=== PATIENT | male | born 1980 | race Caucasian/White ===

== ENCOUNTER 2017-11-11 13:47 | Emergency (ER) | payer SELFPAY ==
[2017-11-11 13:48] VITALS: BP 126/75; PULSE 79; RESP 20; TEMP 37.2; O2SAT 99; BMI 50.7
--- NOTE | 2017-11-11 14:19 | ED_ITS ---
HPI - URI/Sore Throat General Chief Complaint: Upper Respiratory Symptoms Stated Complaint: POSSIBLE STREP THROAT Time Seen by Provider: 11/11/17 14:19 Source: patient and RN notes reviewed Mode of arrival: ambulatory Limitations: no limitations History of Present Illness HPI Narrative: Patient is a 37-year-old male who presents with sore throat for the last 4 days. He said he did open Jn night and woke up in his throat was a little more sore it is hurts more on the right than the left. No fever no body aches but some weakness. Runny nose started yesterday. He denies any cough MD Complaint: sore throat Related Data Home Medications Medication Instructions Recorded Confirmed No Known Home Medications 11/11/17 11/11/17 Allergies Allergy/AdvReac Type Severity Reaction Status Date / Time SEAFOOD Allergy Severe Difficulty Uncoded 11/11/17 13:56 Breathing Review of Systems Review of Systems All systems reviewed & are unremarkable except as noted in HPI and below Constitutional Denies chills, Denies fever(s), Denies lethargy and Denies weakness ENT Ears, Nose, Mouth, and Throat: Reports system reviewed and no additional complaints, except as docu Cardiovascular Denies dyspnea and Denies dyspnea on exertion Respiratory Denies cough, Denies dyspnea, Denies dyspnea on exertion and Denies wheezing Gastrointestinal Gastrointestinal: Denies abdominal pain, Denies change in bowel habits, Denies diarrhea, Denies nausea and Denies vomiting Integumentary/Breasts Denies pruritus, Denies erythema, Denies rash and Denies wounds Neurologic Denies weakness Allergic/Immunologic Denies wheezing [facility] Social History Smoking Status: Current every day smoker substance use type: marijuana Exam Initial Vital Signs Initial Vital Signs: Vital Signs Temperature 98.9 F 11/11/17 13:48 Pulse Rate 79 11/11/17 13:48 Respiratory Rate 20 11/11/17 13:48 Blood Pressure 126/75 H 11/11/17 13:48 Pulse Oximetry 99 11/11/17 13:48 Const General: cooperative and well developed Nutritional Appearance: well nourished Orientation: alert, awake, oriented x3 and not confused [facility] Throat: tonsils normal, uvula midline and posterior oropharynx abnormal (right side with mild swelling, no midline shift) 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 Neck Neck: normal visual inspection, trachea midline, No lymphadenopathy, No midline deformity and No JVD Lymphatic: No lymphedema Resp Effort & Inspection: normal respiratory effort, able to speak in complete sentences, no respiratory distress and no use of accessory muscles Auscultation: clear to auscultation bilaterally, no rales, no rhonchi and no wheezes Cardio Rate: regular rate Rhythm: regular rhythm Heart Sounds: no click, no gallops, no murmurs and no rubs Pulses: normal peripheral pulses Skin General: no rashes or lesions noted, No jaundice and No petechiae Neuro General: alert, awake and oriented x3 Course Orders Ordered: Discontinued Medications Dexamethasone (Decadron) 10 mg IV NOW ONE Stop: 11/11/17 14:27 Last Admin: 11/11/17 14:30 Dose: 10 mg Vital Signs - 8 hr 11/11/17 13:48 Temperature 98.9 F Pulse Rate 79 Respiratory Rate 20 Blood Pressure 126/75 H Pulse Oximetry 99 MDM - URI/Sore Throat Lab Data Attestation: I reviewed the patient's lab results. Discharge Plan Departure Patient Disposition: Home, Self-Care Clinical Impression: Pharyngitis Discharge Date/Time: 11/11/17 14:47 Interventions: ED Discharge Assessment Last Done: 11/11/17 14:46 Instructions: DI for Pharyngitis/Tonsillopharyngitis -- Adult Activity Restrictions/Additional Instructions: *You have been diagnosed with pharyngitis *What to do: Rest, hydrate, cough drops *Take medications as directed *Follow up with your primary care provider in 2-3 days *Return to ER if you should have inability to swallow, or any new, worsening or concerning symptoms Prescriptions: No Action No Known Home Medications RF: 0 Referrals: Devin Godinez MD [Primary Care Provider] - Stand Alone Forms: Work/School Restrictions
[2017-11-11] MEDS: DEXAMETHASONE 10 MG/ML VIAL IV (14:30)
== END 2017-11-11 14:47 | disposition home or self-care (01) ==
PROVIDERS: Emergency Provider Emergency Medicine; PCP Internal Medicine
DX: J02.9 Acute pharyngitis, unspecified (principal)
CPT/HCPCS: 87880; 96374; 99282; 99284; J1100

== ENCOUNTER 2024-10-12 06:44 | Emergency (ER) | payer SELFPAY ==
[2024-10-12] VITALS (14 sets, daily range): BP systolic 98–134; BP diastolic 61–82; PULSE 66–95; RESP 16–19; TEMP 36.7; O2SAT 95–99; BMI 22.1
[2024-10-12 07:16] LABS: Strep Grp A by PCR Rapid Negative (Negative)
--- NOTE | 2024-10-12 08:18 | ED.GENADULT ---
HPI - General Adult General Chief complaint: Upper Respiratory Symptoms Stated complaint: Cough/mucus, getting worse; pressure in ear Time Seen by Provider: 10/12/24 08:17 Source: patient, RN notes reviewed and old records reviewed Mode of arrival: Ambulatory Limitations: no limitations History of Present Illness HPI narrative: 44-year-old male no reported medical issues presents with complaint of fatigue, no fevers, nasal congestion, dry cough, little bit of upper chest discomfort for the past several days. Patient states his right ear is also started to get uncomfortable and have increasing pressure. He notes a lot of nasal congestion. He notes some green phlegm. States it has improved at this moment but has felt unwell for a couple days. Denies any shortness of breath. No nausea or vomiting. No other GI or urinary symptoms. No new swelling in extremities. Patient states no daily medications. Does note that he possibly had sick contacts was in group home for about 2 weeks recently. States no known drug allergies. Patient does smoke about a pack weekly, alcohol several times weekly, no IV or other recreational drugs reported. Patient notes that he is currently without a place to stay as he has a no contact order and his cell phone and wallet are at the place he was not supposed to go to. Patient notes he has reached out to law enforcement to have a supervised visit to get his belongings but that has not occurred. He states he would be interested in meeting with social work. He notes he was felt generally unwell but no specific symptoms for a little while. Related Data Home Medications Medication Instructions Recorded Confirmed No Known Home Medications 11/11/17 11/11/17 Allergies Allergy/AdvReac Type Severity Reaction Status Date / Time SEAFOOD Allergy Severe Difficulty Uncoded 11/11/17 13:56 Breathing Review of Systems Review of Systems ROS Unobtainable: All systems reviewed & are unremarkable except as noted in HPI and below Patient History Social History Smoking Status: Current every day smoker substance use type: marijuana Smoking Status: Current every day smoker alcohol intake frequency: a few times a week Exam Narrative Exam Narrative: GEN: well nourished, well appearing male, alert and oriented x [default value], patient appears to be in no acute distress. HEENT: Atraumatic, pupils are equal round reactive to light, extraocular movements are intact, nares are clear, left TM has a small amount of fluid, retracted, no erythema, right TM is clear with no changes, there is no conjunctival pallor. Throat is without any exudates, positive for erythema, no tonsillar enlargement or uvular deviation, no stridor, no muffled voice or hoarseness. HEART: Regular rate and rhythm without murmur, clicks, rubs. LUNGS:Lungs clear to auscultation, no wheezes, rales, crackles, chest moves symmetrically, no tachypnea or accessory muscle use ABD:bowel sounds normal, soft, non-tender, no guarding, rebound, rigidity, no masses noted, no hepatosplenomegaly :No CVA tenderness MSCL: Non-tender, no muscle atrophy, muscles strength 5/5 upper and lower extremities, full range of motion, normal gait NEURO:CN 2-12 intact, sensation normal SKIN: No rash, erythema or other skin changes noted Initial Vital Signs Initial Vital Signs: Vital Signs Pulse Rate 91 H 10/12/24 06:50 Pulse Oximetry 96 10/12/24 06:50 Course Orders Ordered: ED Orders 10/12/24 09:18 CBC Auto Diff [Complete Blood Count AUTO DIFF] Stat CMP [Comprehensive Metabolic Panel] Stat Vital Signs Vital signs: Vital Signs - 8 hr 10/12/24 10:30 10/12/24 10:30 10/12/24 11:00 Pulse Rate 72 Respiratory Rate Blood Pressure 108/71 106/63 Pulse Oximetry 97 Oxygen Delivery Method 10/12/24 11:00 10/12/24 11:30 10/12/24 11:30 Pulse Rate 76 93 H Respiratory Rate 19 Blood Pressure 134/68 Pulse Oximetry 96 98 Oxygen Delivery Method Room Air Medical Decision Making Lab Data 10/12/24 09:18 10/12/24 09:18 Labs: Lab Results 10/12/24 10/12/24 Range/Units 07:01 09:18 WBC 12.7 H (4.5-11.0) X10^3/uL RBC 4.45 L (4.5-5.9) X10^6/uL Hgb 13.7 (13.5-17.5) g/dL Hct 41.0 (41-53) % MCV 92.0 (80-100) fL MCH 30.8 (26-34) PG MCHC 33.5 (30-36) % RDW 14.1 (11.6-14.8) % Plt Count 365 (150-400) X10^3/uL Neut % (Auto) 62.0 (50-75) % Lymph % (Auto) 22.8 L (25-40) % [place] % (Auto) 11.1 (3-14) % Eos % (Auto) 3.1 (2-4) % Baso % (Auto) 1.0 (0-2) % Neut # (Auto) 7800 H (5571-5668) /uL Lymph # (Auto) 2900 (2285-0325) /uL [place] # (Auto) 1400 H (0-900) /uL Eos # (Auto) 400 (0-450) /uL Baso # (Auto) 100 (0-100) /uL Sodium 137 (137-145) mmol/L Potassium 4.4 (3.4-5.1) mmol/L Chloride 102 (98-107) mmol/L Carbon Dioxide 23 (22-32) mmol/L BUN 14 (9-20) mg/dL Creatinine 0.77 (0.66-1.25) mg/dL Estimated GFR > 60 (>60) mL/min BUN/Creatinine Ratio 18.2 (6-22) Glucose 82 (70-99) mg/dL Calcium 9.2 (8.4-10.2) mg/dL Total Bilirubin 0.7 (0.2-1.3) mg/dL AST 91 H (17-59) IU/L ALT 51 H (<50) IU/L Alkaline Phosphatase 102 (38-126) U/L Total Protein 7.4 (6.3-8.2) g/dL Albumin 4.6 (3.5-5.0) g/dL Globulin 2.8 (1.7-4.1) g/dL Albumin/Globulin Ratio 1.6 (1.0-2.8) Group A Strep (PCR) Negative (Negative) MDM Narrative Medical decision making narrative: 44-year-old male with symptoms he was most consistent with viral upper respiratory infection but does note a little bit of upper chest congestion and green phlegm but also notes a lot of nasal drainage, right ear is little uncomfortable. On exam patient is evaluation seems consistent with viral infection but we will obtain chest x-ray. Patient notes he was felt a lot of general fatigue does have a history of being in group home fairly recently but no other medical issues besides chronic tobacco use, denies any IV or injection drugs. Seen CBC and CMP. 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 During patient's stay in the emergency department was found to be drinking [employer]am in his room by registration. Bottle was confiscated during his stay. Rapid strep is negative. Labs labs show white count of 12.7 hemoglobin of 13 platelets of 365. Chemistries are normal except for AST is 91 ALT is 51 bilirubin is 0.7. Chest x-ray shows no acute change Patient met with social work. They discussed resources he is planning to take the bus to try to get a spot at the [facility] in [place]. Patient was alert, oriented, appropriate and able to ambulate safely he was felt appropriate for discharge. Discharge Plan Departure Patient Disposition: Home Clinical Impression: Upper respiratory infection, Alcohol use Instructions: DI for Viral Upper Respiratory Infection -- Adult Activity Restrictions/Additional Instructions: Follow up for recheck as needed. Your workup today shows normal chest x-ray, your AST and ALT or liver enzymes are slightly elevated, the rest of your labs are normal. Your examination and workup appear consistent with a viral upper respiratory infection these typically pass in 7-10 days. Continue with symptomatic care such as hydration you can take an [id number] antihistamine if you find it helpful such as loratadine or Zyrtec. If you are interested in assistance with alcohol cessation/detox in the future you can return at any time. Please return for fevers greater than 100.4 F, new or worsening chest pain, increasing shortness of breath, coughing up blood, lightheadedness or passing out, persistent vomiting, new swelling in your extremities or other new or concerning changes. Prescriptions: No Action No Known Home Medications Referrals: Devin Godinez MD [Primary Care Provider] - Stand Alone Forms: Patient Portal/API/Survey
--- NOTE | 2024-10-12 08:34 | DI.RAD.S_ITS ---
PROCEDURE: XR CHEST 2V INDICATIONS: cough, chest discomfort TECHNIQUE: 2 views of the chest were acquired. COMPARISON: None. FINDINGS: Surgical changes and devices: None. Lungs and pleura: Lungs are clear. No pleural effusions or pneumothorax. Mediastinum: Mediastinal contours are normal. Heart size is normal. Bones and chest wall: No suspicious bony abnormalities. Soft tissues appear unremarkable. IMPRESSION: No acute cardiopulmonary abnormality is seen. Dictated by: Isael Vigil M.D. on 10/12/2024 at 9:02 Approved by: Isael Vigil M.D. on 10/12/2024 at 9:02
--- NOTE | 2024-10-12 09:25 | PC.NURSE ---
Patient register visited patient regarding his stay and noted that patient was drinking bourbon. This RN was informed. This RN went to talk to the patient. Patient states I'm sorry I didn't mean to be disrespectful for drinking here. This RN reassured patient that there was no judgment but I needed to take the liquor and that I would label it and lock it up for the patient while they are in this department. Patient states that he drinks 3oz a day. Patient states that he has had 2 swigs since I got here. Patient denies having any history of withdrawal. Patient denies wanting placement for detox at this time. Provider notified and no new orders at this time.
[2024-10-12 09:29] LABS: Add Manual Diff / Slide Review NO; Basophils Absolute Auto 100 /uL (0-100); Eosinophils Absolute Auto 400 /uL (0-450); Eosinophils Percent Auto 3.1 % (2-4); Hemoglobin 13.7 g/dL (13.5-17.5); Lymphocytes Absolute Auto 2900 /uL (1100-4500); Lymphocytes Percent Auto 22.8 % (25-40); Mean Corpuscular HGB Conc 33.5 % (30-36); Mean Corpuscular Hemoglobin 30.8 PG (26-34); Monocytes Absolute Auto 1400 /uL (0-900); Monocytes Percent Auto 11.1 % (3-14); Neutrophils Absolute Auto 7800 /uL (1500-7000); Platelet Count 365 X10^3/uL (150-400); Red Blood Cell Count 4.45 X10^6/uL (4.5-5.9); Red Cell Distribution Width 14.1 % (11.6-14.8); White Blood Cell Count 12.7 X10^3/uL (4.5-11.0)
[2024-10-12 09:46] LABS: Alanine Aminotransferase 51 IU/L (<50); Albumin 4.6 g/dL (3.5-5.0); Albumin Globulin Ratio 1.6 (1.0-2.8); Alkaline Phosphatase 102 U/L (38-126); Aspartate Aminotransferase 91 IU/L (17-59); BUN Creatinine Ratio 18.2 (6-22); Bilirubin Total 0.7 mg/dL (0.2-1.3); Blood Urea Nitrogen 14 mg/dL (9-20); Calcium 9.2 mg/dL (8.4-10.2); Carbon Dioxide 23 mmol/L (22-32); Chloride 102 mmol/L (98-107); Estimated Glomerular Filt Rate > 60 mL/min (>60); Globulin 2.8 g/dL (1.7-4.1); Glucose 82 mg/dL (70-99); HEMOLYSIS < 15 (0-50); Potassium 4.4 mmol/L (3.4-5.1); Sodium 137 mmol/L (137-145); Total Protein 7.4 g/dL (6.3-8.2)
--- NOTE | 2024-10-12 10:45 | PC.NURSE ---
patient given a turkey sandwich, applesauce, pudding and water. okayed by provider to eat.
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
== END 2024-10-12 11:59 | disposition home or self-care (01) ==
PROVIDERS: Emergency Provider Emergency Medicine; PCP Internal Medicine
DX: J06.9 Acute upper respiratory infection, unspecified (principal); F10.90 Alcohol use, unspecified, uncomplicated; R07.9 Chest pain, unspecified
CPT/HCPCS: 36415; 71046; 80053; 85025; 87651; 99281; 99284

== ENCOUNTER 2025-03-18 14:11 | Emergency (ER) | payer SELFPAY ==
[2025-03-18 14:22] VITALS: BP 141/68; PULSE 94; RESP 14; TEMP 37.1; O2SAT 97; BMI 21.7
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
[2025-03-18] MEDS: ACETAMINOPHEN 325 MG TABLET 975 MG PO (17:25)
[2025-03-18] MEDS: BACITRACIN OINT 0.9 GM PCKT 1 APPLIC TOP (17:26)
[2025-03-18] MEDS: AMOXICILLIN/CLAV 875/125 MG 1 TAB PO (17:26)
[2025-03-18] MEDS: TET,DIPH,PERTUSS(ACELL),VAC/PF 0.5 ML SYRINGE IM (17:26)
[2025-03-18 18:31] VITALS: BP 136/76; PULSE 77; RESP 16; O2SAT 97
== END 2025-03-18 18:30 | disposition home or self-care (01) ==
PROVIDERS: Emergency Provider Physician Assistant
DX: S00.83XA Contusion of other part of head, initial encounter (principal); S61.451A Open bite of right hand, initial encounter; Y04.1XXA Assault by human bite, initial encounter; Y04.2XXA Assault by strike against or bumped into by another person, initial encounter; Z59.00 Homelessness unspecified; Z23 Encounter for immunization
CPT/HCPCS: 70450; 70486; 73130; 90471; 99284; 90715